=== PATIENT | female | born 2000 | race Caucasian/White ===

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

== ENCOUNTER 2021-02-21 20:51 | Emergency (ER) | payer OTHER, SELFPAY ==
[~2021-02-21] VITALS: Ht 175.3 cm; Wt 95.3 kg
[2021-02-21 22:09] VITALS: BP_SYST 130
--- NOTE | 2021-02-22 00:55 | NUR ---
ER in tent examining patient.
[2021-02-22] MEDS ORDERED: D-ME118S48 PO (01:05)
--- NOTE | 2021-02-22 01:24 | NUR ---
Patient O2 saturation while standing and walking around bedside is 99%
[2021-02-22 01:25] VITALS: BP_SYST 128
--- NOTE | 2021-02-22 01:25 | NUR ---
Patient given written and verbal discharge instructions and verbalizes understanding. ER MD discussed with patient the results and treatment provided. Patient in stable condition. ID arm band removed.Patient educated on pain management and to follow up with PMD. Pain Scale 4/10. Opportunity for questions provided and answered.
== END 2021-02-22 01:25 | disposition home or self-care (01) ==
LOC: SED 20:51
DX: U07.1 COVID-19 (principal)
CPT/HCPCS: 36415; 71045; 86710; 99284